=== PATIENT | male | born 1995 | race Caucasian/White ===

== ENCOUNTER 2016-10-13 21:09 | Emergency (ER) | payer BC ==
[~2016-10-13] VITALS: Ht 177.8 cm; Wt 78.0 kg
[2016-10-13 21:11] VITALS: BP 147/90; PULSE 69; RESP 15; TEMP 97.9; O2SAT 97
--- NOTE | 2016-10-13 21:36 | PD ---
HPI Chief Complaint: Head Injury Time Seen by Provider: 21:25 Travel History International Travel<30 days: No Contact w/Intl Traveler<30days: No Traveled to known affect area: No History of Present Illness HPI 20-year-old male presents to the emergency Department with a history of going to a [employer] [facility] [place] earlier today, where he had an incident where he was going to do a trick on a trampoline a 6-year-old boy jumped in front of him , the patient had to avoid collision with the young boy, and ended up hitting his left forehead/cheek on the wall. Patient states he had sudden episode of perhaps 30 seconds to 1 minute of feeling disoriented and confused with mild headache. Patient had obvious facial discomfort from the contusion. Patient states he sat for approximately 5 minutes and seemed to improve, and continued to play at the [employer] [facility] [place] for another hour. Patient then went home, and states his headache worsened, and he felt somewhat nauseous and threw up 1. Patient did state he took some ibuprofen when he arrives home prior to vomiting. Patient does have a history of acid reflux. Currently the patient states his headache is approximately 3/10, and he does not feel nauseous currently he denies dizziness, numbness, tingling, or visual changes. He denies any neck injury or pain. He denies injury to any other part of the body. Patient has no known drug allergies. PFSH Past Medical History GERD: Yes Tetanus Vaccination: < 5 Years Past Surgical History Surgical History: No Previous Surgery Social History Alcohol Use: Yes (occasionaly ) Tobacco Use: No Substance Use: No Allergies-Medications (Allergen,Severity, Reaction): Coded Allergies: No Known Allergies (Unverified , 10/13/16) Reported Meds & Prescriptions Reported Meds & Active Scripts Active Ibuprofen 600 Mg Tab 600 Mg PO Q6H PRN Acetaminophen Extra Strength (Acetaminophen) 500 Mg Cap 1,000 Mg PO Q6H PRN Zofran (Ondansetron HCl) 4 Mg Tab 4 Mg PO Q6HR PRN Review of Systems Except as stated in HPI: all other systems reviewed are Neg General / Constitutional: No: Fever Eyes: No: Visual changes HENT: No: Headaches Cardiovascular: No: Chest Pain or Discomfort Respiratory: No: Shortness of Breath Gastrointestinal: No: Abdominal Pain Genitourinary: No: Dysuria Musculoskeletal: No: Pain Skin: No Rash Neurologic: No: Weakness Psychiatric: No: Depression Endocrine: No: Polydipsia Hematologic/Lymphatic: No: Easy Bruising Physical Exam Narrative GENERAL: Patient appears in no acute distress. SKIN: Warm and dry. Patient has some superficial abrasions to the left lower forehead, and left anterior maxillary cheek. HEAD: Atraumatic. Normocephalic. Patient has mild tenderness at the contusion area of the left forehead and maxillary cheek. EYES: Pupils equal and round. No scleral icterus. No injection or drainage. Ophthalmoscopic exam is unremarkable. Patient has no photophobia. Patient has no nystagmus. ENT: No nasal bleeding or discharge. Mucous membranes pink and moist. No dental injury. Pharynx is normal. Airway is patent. NECK: Trachea midline. No JVD. No bony tenderness or step-off. Range of motion is full without tenderness. CARDIOVASCULAR: Regular rate and rhythm. No murmurs gallops or rubs. RESPIRATORY: No accessory muscle use. Clear to auscultation. Breath sounds equal bilaterally. GASTROINTESTINAL: Abdomen soft, non-tender, nondistended. Hepatic and splenic margins not palpable. MUSCULOSKELETAL: Extremities without clubbing, cyanosis, or edema. No obvious deformities. NEUROLOGICAL: Awake and alert. No obvious cranial nerve deficits. Motor grossly within normal limits. Five out of 5 muscle strength in the arms and legs. Normal speech. PSYCHIATRIC: Appropriate mood and affect; insight and judgment normal. Data Data Last Documented VS Vital Signs Date Time Temp Pulse Resp B/P Pulse Ox O2 Delivery O2 Flow Rate FiO2 10/13/16 21:11 97.9 69 15 147/90 97 Room Air [facility] Medical Decision Making Medical Screen Exam Complete: Yes Emergency Medical Condition: Yes Differential Diagnosis Head contusion. Facial contusion. Abrasions. Possible concussion. Narrative Course Patient is felt to be medically stable at time of exam. Patient is discussed with Dr. gabriel as well as examined by him. Based on the [place] [facility] rules, the patient does not qualify for CT at this time. Patient is felt to be medically stable to be discharged home with instructions regarding concussion and post concussion syndrome. Patient is to rest, avoid repeat head injury, take Tylenol or ibuprofen as needed. Patient follow up with symptoms worsen in the next 24-48 hours as discussed otherwise should avoid strenuous activity for the next week. Patient follow with his primary care physician as needed. Diagnosis Primary Impression: Concussion Qualified Code: S06.0X0A - Concussion, without loss of consciousness, initial encounter Referrals: Primary Care Physician Patient Instructions: Concussion (ED), General Instructions, Post Concussion Syndrome (ED) Additional Instructions: Based on the [place] [facility] rules, the patient does not qualify for CT at this time. Patient is felt to be medically stable to be discharged home with instructions regarding concussion and post concussion syndrome. Patient is to rest, avoid repeat head injury, take Tylenol or ibuprofen as needed. Patient follow up with symptoms worsen in the next 24-48 hours as discussed otherwise should avoid strenuous activity for the next week. Patient follow with his primary care physician as needed. Med/Other Pt SpecificInfo: No Meds Exist/No RX given Scripts Ibuprofen 600 Mg [id number] Mg PO Q6H PRN (Pain/Inflammation) #40 TAB Prov:Saurav Raymond MD 10/13/16 Acetaminophen (Acetaminophen Extra Strength)500 Mg Cap1,000 Mg PO Q6H PRN (PAIN SCALE 4 TO 10) #60 CAP Ref 1 Prov:Saurav Raymond MD 10/13/16 Ondansetron (Zofran)4 Mg Tab4 Mg PO Q6HR PRN (NAUSEA OR VOMITING) #12 TAB Prov:Saurav Raymond MD 10/13/16 Disposition: 01 DISCHARGE HOME Condition: Stable Beni Chamberlain Oct 13, 2016 21:36
[2016-10-13] MEDS ORDERED: EXTR500C PO (21:43)
[2016-10-13] MEDS ORDERED: IBUP-232 PO (21:43)
[2016-10-13] MEDS ORDERED: ZOFR4TAB PO (21:43)
--- NOTE | 2016-10-13 22:43 | PD ---
Data Data Last Documented VS Vital Signs Date Time Temp Pulse Resp B/P Pulse Ox O2 Delivery O2 Flow Rate FiO2 10/13/16 21:58 72 16 99 10/13/16 21:11 97.9 147/90 Room Air [facility] Supervised Visit with MEREDIHT: Yes Narrative Course The history, exam, and medical decision-making in the associated mid-level provider note were completed with my assistance. I reviewed and agree with the findings presented. I attest that I had a [id number] encounter with the patient on the same day, and personally performed and documented my assessment and findings in the medical record. *My assessment and Findings: 20-year-old man who was playing in a trapeze building when he had this removed to avoid hitting a [id number] and hit his head against the wall. He was dazed for a moment or 2 afterwards. He continued playing and went home. He then had some worsening headache, and dizziness. He vomited once. He otherwise has been feeling well. At this point, recommended against CT imaging of the head. He likely has some concussion symptoms. He'll return for any worsening symptoms, [id number] analgesics as needed. Diagnosis Primary Impression: Concussion Qualified Code: S06.0X0A - Concussion, without loss of consciousness, initial encounter Referrals: Primary Care Physician Patient Instructions: General Instructions, Concussion (ED), Post Concussion Syndrome (ED) Departure Forms: Tests/Procedures Additional Instruction: Based on the [place] CT rules, the patient does not qualify for CT at this time. Patient is felt to be medically stable to be discharged home with instructions regarding concussion and post concussion syndrome. Patient is to rest, avoid repeat head injury, take Tylenol or ibuprofen as needed. Patient follow up with symptoms worsen in the next 24-48 hours as discussed otherwise should avoid strenuous activity for the next week. Patient follow with his primary care physician as needed. Scripts Ibuprofen 600 Mg [id number] Mg PO Q6H PRN (Pain/Inflammation) #40 TAB Prov:Saurav Raymond MD 10/13/16 Acetaminophen (Acetaminophen Extra Strength)500 Mg Cap1,000 Mg PO Q6H PRN (PAIN SCALE 4 TO 10) #60 CAP Ref 1 Prov:Saurav Raymond MD 10/13/16 Ondansetron (Zofran)4 Mg Tab4 Mg PO Q6HR PRN (NAUSEA OR VOMITING) #12 TAB Prov:Saurav Raymond MD 10/13/16 Disposition: 01 DISCHARGE HOME Condition: Stable Saurav Raymond MD Oct 13, 2016 22:43
== END 2016-10-13 21:59 | disposition home or self-care (01) ==
LOC: NEPE 21:09
DX: S06.0X0A Concussion without loss of consciousness, initial encounter (principal); R11.2 Nausea with vomiting, unspecified; K21.9 Gastro-esophageal reflux disease without esophagitis; W22.01XA Walked into wall, initial encounter; Y93.44 Activity, trampolining; Y92.831 Amusement park as the place of occurrence of the external cause
CPT/HCPCS: 99283